=== PATIENT | female | born 2000 | race African-American/Black ===

== ENCOUNTER 2023-10-29 10:04 | Emergency (ER) | payer SELFPAY ==
[~2023-10-29] VITALS: Ht 167.6 cm; Wt 61.8 kg
[2023-10-29 11:18] LABS: AMPHETAMINES LEVEL URINE NEGATIVE (NEGATIVE); BARBITURATES URINE NEGATIVE (NEGATIVE); BENZODIAZEPINES URINE NEGATIVE (NEGATIVE); COCAINE METABOLITE URINE NEGATIVE (NEGATIVE); METHADONE URINE NEGATIVE (NEGATIVE); OPIATES URINE NEGATIVE (NEGATIVE); PHENCYCLIDINE URINE NEGATIVE (NEGATIVE)
[2023-10-29 11:23] LABS: CANNABINOIDS URINE POSITIVE (NEGATIVE)
[2023-10-29 13:45] VITALS: BP 113/54; O2SAT 99
[2023-10-29 14:58] VITALS: TEMP 98.3
== END 2023-10-29 15:00 | disposition home or self-care (01) ==
LOC: M ED 10:04
DX: T40.711A Poisoning by cannabis, accidental (unintentional), initial encounter (principal)

== ENCOUNTER 2024-06-06 06:25 | Emergency (ER) | payer OTHER, SELFPAY ==
[~2024-06-06] VITALS: Ht 167.6 cm; Wt 60.0 kg
[2024-06-06 06:35] VITALS: BP 136/76; TEMP 97.4; O2SAT 97
[2024-06-06 07:03] LABS: BASO # 0.1 10^3/uL (0.0-0.2); BASO % 0.6 % (0.0-1.0); EOS # 0.2 10^3/uL (0.0-0.5); EOS % 2.6 % (0.0-3.0); HEMATOCRIT 31.7 % (36.0-47.0); HEMOGLOBIN 10.6 g/dl (12.0-15.5); LYMPH # 2.2 10^3/uL (1.5-5.0); LYMPH % 25.5 % (24.0-44.0); MEAN CORPUSCULAR HEMOGLOBIN 29.9 pg (27.0-33.0); MEAN CORPUSCULAR HGB CONC 33.4 g/dl (32.0-36.5); MEAN CORPUSCULAR VOLUME 89.3 fl (80.0-96.0); MONO # 0.6 10^3/uL (0.0-0.8); MONO % 6.3 % (2.0-8.0); NEUTROPHILS # 5.6 10^3/uL (1.5-8.5); PLATELET COUNT, AUTOMATED 287 10^3/uL (150-450); RED BLOOD COUNT 3.55 10^6/uL (4.00-5.40); WHITE BLOOD COUNT 8.7 10^3/uL (4.0-10.0)
[2024-06-06 07:30] LABS: CK-MB VALUE MASS < 1.0 NG/ML (<3.6)
[2024-06-06 07:32] LABS: HCG, SERUM QUALITATIVE POSITIVE (NEGATIVE)
[2024-06-06 07:48] LABS: BLOOD UREA NITROGEN < 5 MG/DL (9-23); CALCIUM LEVEL 8.9 MG/DL (8.5-10.1); CARBON DIOXIDE LEVEL 22 MMOL/L (20-31); CHLORIDE LEVEL 109 MMOL/L (98-107); CPK CREATINE PHOSPHOKINASE 74 U/L (34-145); CREATININE FOR GFR 0.49 MG/DL (0.55-1.30); GLOMERULAR FILTRATION RATE > 60.0 (>60); GLUCOSE, FASTING 82 MG/DL (60-100); MB/CK RELATIVE INDEX 1.35 (< OR =4); POTASSIUM SERUM 3.6 MMOL/L (3.5-5.1); SODIUM LEVEL 139 MMOL/L (136-145)
[2024-06-06 08:57] LABS: LIPASE 26 U/L (12-53)
[2024-06-06 08:59] LABS: ALBUMIN 2.8 G/DL (3.2-5.2); ALKALINE PHOSPHATASE 71 U/L (35-104); ALT/SGPT < 9 U/L (7.0-40); AST/SGOT 15 U/L (<34); BILIRUBIN,DIRECT < 0.1 MG/DL (<0.4); BILIRUBIN,TOTAL 0.2 MG/DL (0.3-1.2); TOTAL PROTEIN 6.6 G/DL (5.7-8.2)
== END 2024-06-06 09:20 | disposition left against medical advice (07) ==
LOC: M ED 06:25 → EDBD 06:25 → M ED 09:20
DX: O99.411 Diseases of the circulatory system complicating pregnancy, first trimester (principal); R07.9 Chest pain, unspecified; F19.10 Other psychoactive substance abuse, uncomplicated; Z3A.12 12 weeks gestation of pregnancy; Z53.9 Procedure and treatment not carried out, unspecified reason